=== PATIENT | female | born 1955 | race Caucasian/White ===

== ENCOUNTER 2023-03-09 00:26 | Emergency (ER) | payer OTHER ==
[~2023-03-09] VITALS: Ht 172.7 cm; Wt 109.0 kg
[2023-03-09 04:10] VITALS: BP 145/80
[2023-03-09 04:14] LABS: Urine Bacteria FEW /hpf (None Seen); Urine Blood 3+ /uL (Negative); Urine Specific Gravity 1.006 (1.001-1.035); Urine WBC 77 /hpf (0 - 5); Urine WBC Clumps PRESENT /hpf (None Seen)
[2023-03-09] MEDS ORDERED: PHEN-922 PO (04:39)
[2023-03-09] MEDS ORDERED: CEPH-510 PO (04:39)
[2023-03-09] MEDS ORDERED: LIDOCAINE 1% HCL (LOCAL ANESTH.) INJ 20ML MDV ID ONE (04:45)
[2023-03-09] MEDS ORDERED: cefTRIAXone SOD 1,000 MG VL IM ONE (04:45)
== END 2023-03-09 05:05 | disposition home or self-care (01) ==
LOC: ER 00:26
DX: N39.0 Urinary tract infection, site not specified (principal); Z88.8 Allergy status to other drugs, medicaments and biological substances
CPT/HCPCS: 81001; 96372; 99283; J0696; J2001

== ENCOUNTER 2023-05-27 08:23 | Emergency (ER) | payer OTHER ==
[~2023-05-27] VITALS: Ht 170.2 cm; Wt 108.3 kg
[~2023-05-27 08:23] MED LIST: CEPH-510 PO; PHEN-922 PO
[2023-05-27 08:38] VITALS: BP 153/85; PULSE 85; RESP 16; TEMP 97.4; O2SAT 95
[2023-05-27] MEDS ORDERED: ACETAMINOPHEN 325 MG TAB PO ONE (10:30)
[2023-05-27] MEDS ORDERED: ACET-1304 PO (11:38)
[2023-05-27] MEDS ORDERED: MELO-335 PO (11:38)
== END 2023-05-27 12:26 | disposition home or self-care (01) ==
LOC: ER 08:23
DX: M79.602 Pain in left arm (principal); M79.601 Pain in right arm; M79.662 Pain in left lower leg; M79.661 Pain in right lower leg; Z79.899 Other long term (current) drug therapy; Z88.2 Allergy status to sulfonamides; Z88.8 Allergy status to other drugs, medicaments and biological substances
CPT/HCPCS: 36415; 82550